=== PATIENT | male | born 1955 | race Caucasian/White ===

== ENCOUNTER 2016-09-30 11:48 | Emergency (ER) | payer OTHER ==
[~2016-09-30] VITALS: Ht 177.8 cm; Wt 115.6 kg
[~2016-09-30 11:48] MED LIST: AVELOX400 MG PO; BYETTA10 MCG/0.0 SC; FERROUS SULFAT325 MG PO; GLUCOPHAGE XR750 MG PO; HABITROL,NICODE21 MG TD; JANUMET 50/11 TABLET PO; LIDODERM 5% P1 PATCH TD; LISINOPRIL5 MG PO; NEXIUM20 MG PO; NEXIUM40 MG PO; PRINIVIL5 MG PO; RANITIDINE HCL300 MG PO; RITALIN10 MG PO; ULTRAM50 MG PO; ZETIA10 MG; ZETIA10 MG PO; Zestril,Prinivil PO; [UNRECOGNIZED DRUG - OTHER]; [UNRECOGNIZED DRUG - OTHER]; [UNRECOGNIZED DRUG - REMARK]
[2016-09-30 12:54] LABS: INFLUENZA A VIRAL ANTIGEN NEGATIVE; INFLUENZA B VIRAL ANTIGEN NEGATIVE
[2016-09-30] MEDS ORDERED: AUGMENTIN875 MG PO (12:57)
[2016-09-30 13:07] VITALS: BP 116/65
== END 2016-09-30 13:09 | disposition home or self-care (01) ==
LOC: EME 11:48
PROVIDERS: Nurse Practitioner Family
DX: J06.9 Acute upper respiratory infection, unspecified (principal); J01.90 Acute sinusitis, unspecified; E11.9 Type 2 diabetes mellitus without complications; E78.5 Hyperlipidemia, unspecified; I10 Essential (primary) hypertension; Z87.442 Personal history of urinary calculi; Z88.6 Allergy status to analgesic agent
CPT/HCPCS: 71020; 87502; 99281; 99283

== ENCOUNTER 2016-11-10 19:52 | Emergency (ER) | payer OTHER ==
[~2016-11-10] VITALS: Ht 177.8 cm; Wt 112.4 kg
[~2016-11-10 19:52] MED LIST changes: +AUGMENTIN875 MG PO
[2016-11-10 20:28] VITALS: BP 151/92
[2016-11-10] MEDS ORDERED: ULTRAM50 MG PO (23:16)
== END 2016-11-10 23:34 | disposition home or self-care (01) ==
LOC: EME 19:52
DX: S82.001A Unspecified fracture of right patella, initial encounter for closed fracture (principal); S80.211A Abrasion, right knee, initial encounter; W19.XXXA Unspecified fall, initial encounter; E11.9 Type 2 diabetes mellitus without complications; E78.5 Hyperlipidemia, unspecified; Z87.891 Personal history of nicotine dependence
CPT/HCPCS: 73564; 99281; 99284

== ENCOUNTER 2016-12-08 06:22 | Observation (INO) | payer OTHER ==
[~2016-12-08] VITALS: Ht 177.8 cm; Wt 117.8 kg
[2016-12-08 07:15] LABS: MCH 32.4 PG (29.0-34.0); MCHC 35.7 G/DL (30.0-36.0); MCV 90.7 FL (86-99); MEAN PLAT.VOLUME 9.6 uM^3 (9.0-12.4); PLATELET COUNT 135 K/uL (156-360); RBC DIS.WIDTH-CV 13.7 % (11.8-14.6); RBC DIS.WIDTH-SD 45.1 % (39-53); RED BLOOD COUNT 4.63 M/uL (4.00-5.50); WHITE BLOOD COUNT 11.3 K/uL (4.1-10.2)
[2016-12-08 07:42] LABS: ANION GAP 10 MEQ/L (2-14); CHLORIDE 101 MEQ/L (99-109); POTASSIUM 4.1 MEQ/L (3.7-5.4); SAMPLE HEMOLYSIS CHECK 0; SAMPLE ICTERIC CHECK 0; SAMPLE LIPEMIA CHECK 0; SODIUM 135 MEQ/L (136-147)
[2016-12-08 07:47] LABS: GFR ESTIMATE (CALCULATED) > 59 mL/min/; GLUCOSE 342 mg/dL (70-99); UREA NITROGEN (BUN) 17 mg/dL (9-23)
[2016-12-08 07:51] LABS: TROP-I INTERPRETATION NEGATIVE; TROPONIN-I < 0.01 ng/mL (0.0-0.30)
[2016-12-08 08:06] LABS: INFLUENZA A VIRAL ANTIGEN NEGATIVE; INFLUENZA B VIRAL ANTIGEN NEGATIVE
[2016-12-08 08:33] LABS: CARBON DIOXIDE (BICARBONATE) 26.7 MEQ/L (20-31)
[2016-12-08] MEDS ORDERED: LEVAQUIN750 MG PO (09:10)
[2016-12-08] MEDS ORDERED: ZOFRAN ODT4 MG PO ×2 (09:10→16:52)
[2016-12-08 09:19] LABS: BILIRUBIN NEGATIVE; COLOR YELLOW ((YELLOW)); GLUCOSE (STRIP) 1000; KETONES NEGATIVE; LEUKOCYTES NEGATIVE; NITRITE NEGATIVE; PROTEIN (STRIP) NEGATIVE; UROBILINOGEN 0.2 MG/DL (0.2-1.0)
[2016-12-08 09:20] LABS: ADD MIUA? NO; BLOOD NEGATIVE
[2016-12-08 16:09] LABS: POINT-OF-CARE METER ID UU14100415
[2016-12-08] MEDS ORDERED: FLONASE16 G1 BOTH NARES (16:53)
[2016-12-08] MEDS ORDERED: BYSTOLIC10 MG PO (16:55)
[2016-12-08] MEDS ORDERED: GLIPIZIDE XL5 MG PO (16:55)
[2016-12-08] MEDS ORDERED: MOMETASONE FURO45 GM TP (16:56)
[2016-12-08] MEDS ORDERED: NOVOLOG MI100 UNIT/M SC ×2 (16:56→16:57)
[2016-12-08] MEDS ORDERED: MELOXICAM15 MG PO (16:57)
[2016-12-08 18:06] VITALS: BP 133/66
[2016-12-08 19:00] VITALS: BP 143/62
[2016-12-08 19:29] LABS: BASE EXCESS -1.8 mEq/L (-3 to +3); BICARBONATE 22.2 mEq/L (22-26); CARBOXY HGB 2.4 % (0-5); COMMENTS - BLOOD GASES A+C+; DEVICE RA; METHEMOGLOBIN 1.4 % (0-1.5); PCO2 35 mm Hg (35-45); PO2 82 mm Hg (80-100); SITE LR; pH 7.41 (7.35-7.45)
[2016-12-08 20:14] LABS: EOSINOPHIL (%) 0 % (0-5); HEMATOCRIT 38.4 % (38.0-50.0); IMMATURE GRANULOCYTE (%) 0.8 % (0.0-0.7); IMMATURE GRANULOCYTE COUNT 0.1 K/uL; INSTRUMENT ABS NEUTROPHIL CT 10.6 K/uL; LYMPHOCYTE COUNT 0.9 K/uL (1.0-2.8); MCH 32.4 PG (29.0-34.0); MCHC 35.2 G/DL (30.0-36.0); MCV 92.1 FL (86-99); MONOCYTE (%) 1.3 % (3-12); MONOCYTE COUNT 0.2 K/uL (0-0.8); NEUTROPHIL (%) 90.4 % (45-76); NEUTROPHIL COUNT 10.6 K/uL (1.8-6.4); PLATELET COUNT 123 K/uL (156-360); RED BLOOD COUNT 4.17 M/uL (4.00-5.50); WHITE BLOOD COUNT 11.7 K/uL (4.1-10.2)
[2016-12-08 20:59] LABS: ALKALINE PHOSPHATASE 72 IU/L (3-129); ANION GAP 17 MEQ/L (2-14); CHLORIDE 100 MEQ/L (99-109); GFR ESTIMATE (CALCULATED) > 59 mL/min/; GLUCOSE 391 mg/dL (70-99); MAGNESIUM 1.7 mg/dl (1.3-2.7); POTASSIUM 3.9 MEQ/L (3.7-5.4); SAMPLE HEMOLYSIS CHECK 0; SAMPLE ICTERIC CHECK 0; SAMPLE LIPEMIA CHECK 0; SODIUM 136 MEQ/L (136-147); TOTAL BILIRUBIN 0.8 MG/DL (0.0-1.0); UREA NITROGEN (BUN) 19 mg/dL (9-23)
[2016-12-08 22:17] LABS: POINT-OF-CARE METER ID UU14162513
[2016-12-09] VITALS: BP 120/57
[2016-12-09 02:08] LABS: POINT-OF-CARE METER ID UU13113831
[2016-12-09 03:27] LABS: HEMATOCRIT 35.4 % (38.0-50.0); MCH 32.6 PG (29.0-34.0); MCHC 35.6 G/DL (30.0-36.0); MCV 91.5 FL (86-99); MEAN PLAT.VOLUME 9.8 uM^3 (9.0-12.4); PLATELET COUNT 107 K/uL (156-360); RBC DIS.WIDTH-CV 13.9 % (11.8-14.6); RBC DIS.WIDTH-SD 45.9 % (39-53); RED BLOOD COUNT 3.87 M/uL (4.00-5.50); WHITE BLOOD COUNT 11.8 K/uL (4.1-10.2)
[2016-12-09 03:39] LABS: CHLORIDE 106 mEq/L (99-109); POTASSIUM 4.1 mEq/L (3.7-5.4); SODIUM 138 mEq/L (136-147)
[2016-12-09 03:40] LABS: GLUCOSE 250 mg/dL (70-99)
[2016-12-09 03:42] LABS: ANION GAP 10 MEQ/L (2-14)
[2016-12-09 03:44] LABS: GFR ESTIMATE (CALCULATED) > 59 mL/min/
[2016-12-09 03:45] LABS: UREA NITROGEN (BUN) 18 mg/dL (9-23)
[2016-12-09 03:48] VITALS: BP 112/54
[2016-12-09 07:03] LABS: POINT-OF-CARE METER ID UU14162513
[2016-12-09 07:53] VITALS: BP 115/56
[2016-12-09 10:42] LABS: POINT-OF-CARE METER ID UU13113831
[2016-12-09] MEDS ORDERED: AZITHROMYCIN250 MG1 PO (11:50)
[2016-12-09] MEDS ORDERED: COMBIVENT RESPIM4 GM IH (11:51)
[2016-12-09 12:19] VITALS: BP 111/68
== END 2016-12-09 13:29 | disposition home or self-care (01) ==
LOC: EME 06:22 → EDOF 15:57 → 5WEST 17:50
PROVIDERS: Hospitalist; Internal Medicine; Physician Assistant Medical
DX: E87.2 Acidosis (principal); E86.0 Dehydration; J84.01 Alveolar proteinosis; J06.9 Acute upper respiratory infection, unspecified; I10 Essential (primary) hypertension; E11.9 Type 2 diabetes mellitus without complications; E78.5 Hyperlipidemia, unspecified; G89.29 Other chronic pain; E66.9 Obesity, unspecified; Z68.37 Body mass index [BMI] 37.0-37.9, adult; Z79.4 Long term (current) use of insulin
CPT/HCPCS: 36600; 71020; 71260; 80048; 80053; 81003; 82010; 82803; 82948; 83605; 83735; 83880; 84484; 85025; 85027; 85651; 87040; 87502; 93005; 94640; 94640 76; 99202; 99281; 99285; G0378; J0696; J1815; J2920; J2930; J7030; J7050